=== PATIENT | male | born 1965 ===

== ENCOUNTER 2019-09-12 06:05 | Day surgery (SDC) | payer OTHER ==
[2019-09-12] MEDS ORDERED: POLY119PG PO (09:19)
[2019-09-12] MEDS ORDERED: ULTRAM50 MG PO (09:19)
[2019-09-12] MEDS ORDERED: SURFAK240 M1 PO (09:20)
== END 2019-09-12 12:20 | disposition home or self-care (01) ==
LOC: CIR.AMB 06:05 → RECOVERY 07:45 → ADM 07:45 → EDSTATUS 07:45 → CIR.AMB 07:45
PROVIDERS: ATTEND Surgery
DX: K40.30 Unilateral inguinal hernia, with obstruction, without gangrene, not specified as recurrent (principal); K42.0 Umbilical hernia with obstruction, without gangrene; K43.0 Incisional hernia with obstruction, without gangrene